=== PATIENT | male | born 1975 | race Caucasian/White ===

== ENCOUNTER 2022-01-15 07:43 | Outpatient (CLI) | payer OTHER, BC, SELFPAY | END 2022-01-15 07:44 | disposition home or self-care (01) | LOC: AMB 01-29 03:11 | PROVIDERS: Visit Provider Family Medicine | DX: S29.9XXA Unspecified injury of thorax, initial encounter (principal); V43.52XA Car driver injured in collision with other type car in traffic accident, initial encounter; Y92.488 Other paved roadways as the place of occurrence of the external cause ==

== ENCOUNTER 2022-01-15 08:24 | Emergency (ER) | payer OTHER, BC, SELFPAY ==
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
--- NOTE | 2022-01-15 09:12 | ED.NURSE ---
Pt to imaging.
[2022-01-15 09:14] VITALS: BP 205/126; PULSE 72; RESP 16; O2SAT 95
[2022-01-15 09:19] LABS: Basophils Absolute Auto 0.03 K/uL (0.00-0.30); Basophils Percent Auto 0.5 % (0.0-3.0); Eosinophils Absolute Auto 0.06 K/uL (0.00-0.50); Eosinophils Percent Auto 0.9 % (0.0-7.0); Hematocrit 44.3 % (37.0-53.0); Hemoglobin* 15.3 gm/dL (13.5-17.5); Immature Granulocytes Abs Auto 0.06 K/uL (0.00-0.30); Lymphocytes Absolute Auto 1.85 K/uL (0.90-2.90); Lymphocytes Percent Auto 28.6 % (20-44); Mean Corpuscular HGB Conc 35 gm/dL (32-36); Mean Corpuscular Hemoglobin 29 pg (26-34); Mean Corpuscular Volume 85 fL (80-100); Monocytes Percent Auto 6.5 % (0.0-11.0); Neutrophils Absolute Auto 4.05 K/uL (1.7-7.0); Neutrophils Percent Auto 62.6 % (42.0-72.0); Platelet Count* 253 K/uL (140-440); RDW Coefficient of Variation % 12.6 % (11.5-15.5); Red Blood Count 5.24 m/uL (4.30-5.90); White Blood Count* 6.47 K/uL (4.50-11.00)
[2022-01-15 09:22] LABS: Slide Review Reflex No
[2022-01-15 09:24] VITALS: BP 229/137; PULSE 69; RESP 16; TEMP 35.6; O2SAT 97
[2022-01-15 09:32] LABS: Albumin* 4.4 g/dL (3.3-5.0); Chloride* 102 mmol/L (96-114)
[2022-01-15 09:33] LABS: Potassium* 3.8 mmol/L (3.6-5.1); Sodium* 136 mmol/L (135-149)
[2022-01-15 09:35] LABS: Aspartate Amino Transferase* 27 U/L (12-35); Bilirubin Direct* 0.2 mg/dL (0.0-0.5); Bilirubin Total* 0.5 mg/dL (0.1-1.5); Carbon Dioxide* 23 mmol/L (20-32); Creatinine* 0.9 mg/dL (0.5-1.5); Estimated Glomerular Filt Rate 107 ml/min
[2022-01-15 09:36] LABS: Alanine Aminotransferase* 23 U/L (4-50); Alkaline Phosphatase* 77 U/L (40-150); Blood Urea Nitrogen* 16 mg/dL (5-24); Calcium* 8.8 mg/dL (8.4-10.6); Glucose* 150 mg/dL (60-115)
[2022-01-15] MEDS: MORPHINE 2 MG/ML inj IVP ×2 (09:39→11:56)
[2022-01-15] MEDS: 0.9 % SODIUM CHLORIDE 1000 ml 1,000 ML IV (09:39)
[2022-01-15 10:00] VITALS: BP 195/122; PULSE 72; RESP 16; O2SAT 95
--- NOTE | 2022-01-15 10:30 | ED.NURSE ---
Pt refusing to wear BP cuff - stating its uncomfortable. desizing machine offbearer attempted to place on lower forarm and pt removed.
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
[2022-01-15 11:30] LABS: Troponin, Point-of-Care* 0.01 ng/ml (0.01-0.04)
[2022-01-15 11:41] LABS: Appearance Urine Clear (Clear); Bilirubin Urine Negative (Negative); Blood Urine Negative (Negative); Color Urine Yellow (Yellow); Glucose Urine Negative (Negative); Ketones Urine Negative (Negative); Leukocyte Esterase Urine Negative (Negative); Nitrite Urine Negative (Negative); Protein Urine Negative (Negative); Specific Gravity Urine 1.015 (1.000-1.030); Urobilinogen Urine 0.2 (0.2-1.0); pH Urine 7.5 (5.0-8.5)
[2022-01-15 11:47] LABS: RBC Urine 0-2 (0-2); WBC Urine 0-2 (0-5)
[2022-01-15 13:02] LABS: Troponin, Point-of-Care* 0.01 ng/ml (0.01-0.04)
[2022-01-15 13:56] VITALS: BP 191/123
== END 2022-01-15 13:51 | disposition home or self-care (01) ==
PROVIDERS: Emergency Provider Family Medicine
DX: S20.212A Contusion of left front wall of thorax, initial encounter (principal); V49.88XA Car occupant (driver) (passenger) injured in other specified transport accidents, initial encounter; Y93.89 Activity, other specified; Y92.411 Interstate highway as the place of occurrence of the external cause
CPT/HCPCS: 36415; 70450; 71101; 71260; 72125; 74177; 80048; 80076; 81001; 84484; 85025; 93005; 96374; 96376; 99285; 99291; J2270; J7030; Q9967